=== PATIENT | male | born 1985 | race Caucasian/White ===

== ENCOUNTER 2019-07-05 19:00 | Emergency (ER) | payer MEDICAID, OTHER ==
[~2019-07-05] VITALS: Ht 182.9 cm; Wt 122.7 kg
[2019-07-05] MEDS ORDERED: mag hydrox/Alum hydrox/simeth 30ml oral suspension PO ONE (20:10)
[2019-07-05] MEDS ORDERED: pantoprazole 40 MG vial IV ONE (20:10)
[2019-07-05] MEDS ORDERED: famotidine/PF 10 mg/ml inj IV ONE (20:10)
[2019-07-05] MEDS ORDERED: LIDOcaine Viscous 15ml cup MM ONE (20:10)
[2019-07-05] MEDS ORDERED: ketorolac trometh. 30mg/ml inj. IV ONE (20:10)
[2019-07-05 20:11] LABS: ALANINE AMINOTRANSFERASE 123 U/L (12-78); ALBUMIN 4.3 G/DL (3.4-5.0); ALBUMIN/GLOBULIN RATIO 1.5 (1.1-1.5); ALKALINE PHOSPHATASE 56 IU/L (46-116); ANION GAP 3 (8-16); ASPARTATE AMINO TRANSFERASE 63 U/L (10-37); BLOOD UREA NITROGEN 16 MG/DL (7-18); BUN/CREATININE RATIO 11.7 (5.4-32.0); CALCIUM 9.2 MG/DL (8.5-10.1); CHLORIDE 107 MMOL/L (99-107); CREATININE 1.37 MG/DL (0.60-1.10); GLUCOSE 100 MG/DL (70-104); LIPASE 105 U/L (73-393); POTASSIUM 3.7 MMOL/L (3.5-5.1); SODIUM 143 MMOL/L (135-145); TOTAL CARBON DIOXIDE 32.9 MMOL/L (24-32); TOTAL PROTEIN 7.2 G/DL (6.4-8.2); eGFR 59 ML/MIN
--- NOTE | 2019-07-05 20:16 | NUR ---
Torodol Admin Delayed Per MD order to check for GI cocktail effect before giving.
[2019-07-05] MEDS ORDERED: ondansetron/PF 4mg/2ml inj IV ONE (20:20)
[2019-07-05] MEDS ORDERED: morphine 4 MG/ML inj SYRINge IV ONE (20:20)
[2019-07-05 20:22] LABS: BASOPHILS % (AUTO) 0.6 % (0-1); EOSINOPHILS # (AUTO) 0.1 X10'3 (0-0.9); HEMATOCRIT 45.2 % (42.0-52.0); HEMOGLOBIN 15.8 g/dl (14.0-17.9); LYMPHOCYTES # (AUTO) 1.3 X10'3 (1.1-4.8); LYMPHOCYTES % (AUTO) 26.2 % (21-51); MEAN CORPUSCULAR HEMOGLOBIN 30.1 PG (27.0-31.0); MEAN CORPUSCULAR HGB CONC 34.9 g/dL (33.0-36.5); MEAN CORPUSCULAR VOLUME 86.1 FL (78-98); MONOCYTES # (AUTO) 0.7 X10'3 (0-0.9); MONOCYTES % (AUTO) 13.9 % (2-12); NEUTROPHILS # (AUTO) 2.8 X10'3 (1.8-7.7); NEUTROPHILS % (AUTO) 56.3 % (42-75); PLATELET COUNT 198 X10'3 (140-440); RED BLOOD COUNT 5.25 X10'6 (4.70-6.10); RED CELL DISTRIBUTION WIDTH 13.8 % (11.5-14.5)
--- NOTE | 2019-07-05 20:23 | NUR ---
U/S CALLED BACK AT 20:23 WILL BE RIGHT IN
[2019-07-05 21:56] LABS: CLARITY,URINE SLIGHTLY CLOUDY (Clear); COLOR,URINE YELLOW (Yellow); GLUCOSE, URINE NEGATIVE (Neg); KETONES,URINE NEGATIVE (Neg); LEUKOCYTE ESTERASE ,URINE NEGATIVE (Neg); NITRITES, URINE NEGATIVE (Neg); OCCULT BLOOD,URINE NEGATIVE (Neg); PROTEIN,URINE NEGATIVE (Neg)
[2019-07-05] MEDS ORDERED: HYDR-3965 PO (21:58)
[2019-07-05] MEDS ORDERED: ONDA8TAB6 PO (21:58)
[2019-07-05 22:11] LABS: RBC,URINE NONE SEEN /HPF (0-2); UA COLLECTION TYPE CLN CATCH MIDSTREAM; WBC,URINE NONE SEEN /HPF (0-4)
[2019-07-05 22:12] LABS: AMORPHOUS PHOSPHATES 4+; BACTERIA,URINE FEW /HPF (Neg); SQUAMOUS EPITHELIAL CELL,UR FEW /LPF (FEW)
[2019-07-05 22:13] VITALS: BP 140/84
== END 2019-07-05 22:09 | disposition home or self-care (01) ==
LOC: ER 19:01
DX: K80.20 Calculus of gallbladder without cholecystitis without obstruction (principal); F10.99 Alcohol use, unspecified with unspecified alcohol-induced disorder; Z79.899 Other long term (current) drug therapy; Y90.9 Presence of alcohol in blood, level not specified
CPT/HCPCS: 36415; 74176; 76700; 80053; 81001; 83690; 85025; 96374; 96375; 99284; C9113; J1885; J2270; J2405; J3490

== ENCOUNTER 2020-01-09 18:32 | Emergency (ER) | payer MEDICAID ==
[~2020-01-09] VITALS: Ht 182.9 cm; Wt 120.0 kg
[~2020-01-09 18:32] MED LIST: ONDA8TAB6 PO
[2020-01-09 18:41] VITALS: BP 164/93
== END 2020-01-09 19:37 | disposition home or self-care (01) ==
LOC: ER 18:32
DX: S76.112A Strain of left quadriceps muscle, fascia and tendon, initial encounter (principal); M25.562 Pain in left knee; Z72.89 Other problems related to lifestyle; Z79.899 Other long term (current) drug therapy; X58.XXXA Exposure to other specified factors, initial encounter; Y93.89 Activity, other specified; Y92.89 Other specified places as the place of occurrence of the external cause; Y99.8 Other external cause status
CPT/HCPCS: 29505; 73564; 99283